=== PATIENT | male | born 1960 | race Caucasian/White ===

== ENCOUNTER → 2023-03-07 | Outpatient (CLI) | payer OTHER ==
[2023-03-08 09:55] LABS: Albumin, Blood 3.9 g/dL (3.4-5.0); Albumin/Globulin Ratio 1.1 (0.8-1.8); Bilirubin, Total 0.4 mg/dL (0.1-1.0); Bun/Creatinine Ratio 27.1 (12.0-20.0); Creatinine, Blood 1.77 mg/dL (0.60-1.20); Globulin, Blood 3.5 g/dL (2.2-4.0); Potassium, Blood 4.9 mmol/L (3.5-5.5); Total Protein, Blood 7.4 g/dL (6.4-8.2)
== END ==
LOC: LAB 15:28 → LAB SHORT 15:28
PROVIDERS: Family Medicine Adult Medicine
DX: N17.9 Acute kidney failure, unspecified (principal)
CPT/HCPCS: 80053

== ENCOUNTER → 2023-03-24 | Outpatient (CLI) | payer OTHER ==
[2023-03-24 14:09] LABS: Microalbumin, Urine Quant. 14.6 mg/L (0.000-20.000); Protein, Urine Quantitative 17.5 mg/dL (0.0-11.9)
== END ==
LOC: LAB SHORT 11:28 → LAB 11:28
PROVIDERS: Internal Medicine Nephrology
DX: N18.30 Chronic kidney disease, stage 3 unspecified (principal); D50.9 Iron deficiency anemia, unspecified; R76.9 Abnormal immunological finding in serum, unspecified; R94.5 Abnormal results of liver function studies; R94.6 Abnormal results of thyroid function studies; G60.9 Hereditary and idiopathic neuropathy, unspecified; D52.8 Other folate deficiency anemias
CPT/HCPCS: 81050; 82043; 82570; 84156

== ENCOUNTER → 2024-07-05 | Outpatient (CLI) | payer OTHER | END | disposition home or self-care (01) | LOC: LAB 10:57 → LAB SHORT 10:57 | DX: A04.8 Other specified bacterial intestinal infections (principal) | CPT/HCPCS: 87338 ==

== ENCOUNTER 2024-08-08 16:09 | Inpatient (IN) | payer OTHER ==
[~2024-08-08] VITALS: Ht 188 cm; Wt 66.4 kg
[2024-08-08 17:15] LABS: BASOPHILS ABSOLUTE AUTO 0.04 K/mm3 (0.00-0.23); BASOPHILS PERCENT AUTO 0 % (0-2); EOSINOPHILS ABSOLUTE AUTO 0.01 K/mm3 (0.00-0.68); EOSINOPHILS PERCENT AUTO 0 % (0-6); Hematocrit 36.7 % (37.0-53.0); Hemoglobin 11.9 g/dL (13.5-17.5); IMMATURE GRAN ABSOLUTE AUTO 0.02 K/mm3 (0.00-0.10); IMMATURE GRAN PERCENT AUTO 0 % (0-1); LYMPHOCYTES ABSOLUTE AUTO 1.25 K/mm3 (0.84-5.20); LYMPHOCYTES PERCENT AUTO 13 % (21-46); MONOCYTES ABSOLUTE AUTO 1.33 K/mm3 (0.16-1.47); MONOCYTES PERCENT AUTO 14 % (4-13); Mean Corpuscular HGB 30.5 pg (26.0-34.0); Mean Corpuscular HGB Conc 32.4 g/dL (31.5-36.5); Mean Corpuscular Volume 94 fL (80-100); Mean Platelet Volume 11.3 fL (9.1-12.4); NEUTROPHILS ABSOLUTE AUTO 6.99 K/mm3 (1.96-9.15); NEUTROPHILS PERCENT AUTO 73 % (41-73); Platelet Count 374 K/mm3 (150-400); RDW Coefficient Variation 13.9 % (11.7-14.2); RDW Standard Deviation 48.4 fL (35.1-46.3); White Blood Cell Count 9.64 K/mm3 (4.00-11.30)
[2024-08-08 17:50] LABS: Albumin, Blood 3.7 g/dL (3.4-5.0); Albumin/Globulin Ratio 0.8 (0.8-1.8); Bilirubin, Total 0.7 mg/dL (0.1-1.0); Bun/Creatinine Ratio 16.7 (12.0-20.0); Calcium, Blood 16.3 mg/dL (8.5-10.1); Creatinine, Blood 1.74 mg/dL (0.60-1.20); Globulin, Blood 4.8 g/dL (2.2-4.0); Potassium, Blood 4.7 mmol/L (3.5-5.5); Total Protein, Blood 8.5 g/dL (6.4-8.2)
[2024-08-08] MEDS ORDERED: NS 1,000 ML IV SCH ×2 (20:20→21:20)
[2024-08-08 20:48] LABS: Magnesium, Blood 2.4 mg/dL (1.6-2.4); Phosphorus, Blood 2.7 mg/dL (2.5-4.9)
[2024-08-08] MEDS ORDERED: Ondansetron HCl 2 MG / ML 2ML Vial IV PRN (21:20)
[2024-08-08] MEDS ORDERED: FLU VACC TS2024-25(6MOS UP)/PF 45 MCG/0.5 ML SYRINGE IM SCH (21:20)
[2024-08-08] MEDS ORDERED: TraMADol HCl 50 MG Tab PO PRN (21:25)
[2024-08-08] MEDS ORDERED: NS 1,000 ML IV ONE (21:25)
[2024-08-08 21:46] LABS: Source, Urine Clean Catch
[2024-08-08 22:03] LABS: Appearance, Urine Clear (Clear); Bilirubin, Urine Neg (Neg); Blood, Urine 1+ (Neg); Glucose Qualitative, Urine 1+ (Neg); Ketones, Urine Neg (Neg); Leukocyte Esterase, Urine Neg (Neg); Nitrite, Urine Neg (Neg); Protein, Urine 3+ (Neg); Urobilinogen, Urine NORM (Normal)
[2024-08-08 22:04] LABS: Color, Urine Pale Yellow (P-Yellow)
[2024-08-08 22:10] LABS: Bacteria Rare /hpf; Squamous Epithelial Cells Rare /hpf (Few); White Blood Cells, Urine 0-2 /hpf (0-5)
[2024-08-08 22:14] VITALS: BP 167/90
[2024-08-08] MEDS ORDERED: SODBIC650 PO (22:33)
[2024-08-08 22:34] LABS: Influenza A, PCR NEGATIVE (NEGATIVE); Influenza B, PCR NEGATIVE (NEGATIVE); Resp Syncytial Virus, PCR NEGATIVE (NEGATIVE); SARS-Cov-2 (COVID-19) PCR, MMC NEGATIVE (NEGATIVE)
[2024-08-08] MEDS ORDERED: Calcitonin Salmon 200 IU/ML 2ML Vial SC SCH (23:00)
[2024-08-09] VITALS (9 sets, daily range): BP systolic 150–191; BP diastolic 68–90
[2024-08-09] MEDS ORDERED: HydrALAZINE HCl 20 MG / ML 1ML Vial IV PRN (01:10)
[2024-08-09] MEDS ORDERED: AmLODIPine Besylate 5 MG Tab PO SCH (01:15)
[2024-08-09 04:01] LABS: Hematocrit 32.4 % (37.0-53.0); Hemoglobin 10.5 g/dL (13.5-17.5); Mean Corpuscular HGB 31.3 pg (26.0-34.0); Mean Corpuscular HGB Conc 32.4 g/dL (31.5-36.5); Mean Corpuscular Volume 96 fL (80-100); Mean Platelet Volume 11.3 fL (9.1-12.4); Platelet Count 340 K/mm3 (150-400); RDW Coefficient Variation 14.1 % (11.7-14.2); RDW Standard Deviation 49.3 fL (35.1-46.3); Red Blood Cell Count 3.36 M/mm3 (4.30-5.90); White Blood Cell Count 9.08 K/mm3 (4.00-11.30)
[2024-08-09 04:45] LABS: Albumin, Blood 3.2 g/dL (3.4-5.0); Albumin/Globulin Ratio 0.8 (0.8-1.8); Bilirubin, Total 0.5 mg/dL (0.1-1.0); Bun/Creatinine Ratio 17.3 (12.0-20.0); Creatinine, Blood 1.73 mg/dL (0.60-1.20); Globulin, Blood 4.1 g/dL (2.2-4.0); Potassium, Blood 4.4 mmol/L (3.5-5.5); Total Protein, Blood 7.3 g/dL (6.4-8.2)
[2024-08-09 04:46] LABS: Calcium, Blood 14.3 mg/dL (8.5-10.1)
[2024-08-09] MEDS ORDERED: CREON DR 12,001 EACH PO (08:06)
[2024-08-09] MEDS ORDERED: CELE200 PO (08:08)
[2024-08-09] MEDS ORDERED: Amylase/Lipase/Protease DR Cap 12,000 PO SCH (08:30)
[2024-08-09] MEDS ORDERED: Heparin Sodium 5000 Units/ML 1ML MDV SC SCH (09:00)
[2024-08-09] MEDS ORDERED: Sodium Bicarbonate 650 MG Tab PO SCH (09:00)
[2024-08-09] MEDS ORDERED: Celecoxib 100 MG Cap PO PRN (11:20)
[2024-08-09] MEDS ORDERED: Labetalol HCL 100 MG TAB PO SCH (12:00)
[2024-08-09 15:26] LABS: Bun/Creatinine Ratio 18.9 (12.0-20.0); Calcium, Blood 14.9 mg/dL (8.5-10.1); Creatinine, Blood 1.64 mg/dL (0.60-1.20); Potassium, Blood 4.5 mmol/L (3.5-5.5)
[2024-08-09] MEDS ORDERED: ZOLEDRONIC ACID IV ONE (16:00)
[2024-08-09] MEDS ORDERED: NS IV ONE (16:00)
[2024-08-09 19:50] LABS: Calcium, Blood 15.4 mg/dL (8.5-10.1); Creatinine, Blood 1.7 mg/dL (0.60-1.20); Potassium, Blood 4.2 mmol/L (3.5-5.5)
[2024-08-10] MEDS ORDERED: Calcitonin Salmon 200 IU/ML 2ML Vial SC SCH
[2024-08-10 04:22] VITALS: BP 158/84
[2024-08-10 04:57] LABS: Hematocrit 32.4 % (37.0-53.0); Hemoglobin 10.1 g/dL (13.5-17.5); Mean Corpuscular HGB 30.1 pg (26.0-34.0); Mean Corpuscular HGB Conc 31.2 g/dL (31.5-36.5); Mean Corpuscular Volume 97 fL (80-100); Mean Platelet Volume 11.8 fL (9.1-12.4); Platelet Count 325 K/mm3 (150-400); RDW Coefficient Variation 14.4 % (11.7-14.2); RDW Standard Deviation 50.7 fL (35.1-46.3); Red Blood Cell Count 3.35 M/mm3 (4.30-5.90); White Blood Cell Count 9.36 K/mm3 (4.00-11.30)
[2024-08-10 06:14] LABS: Albumin/Globulin Ratio 0.8 (0.8-1.8); Bilirubin, Total 0.3 mg/dL (0.1-1.0); Bun/Creatinine Ratio 18.8 (12.0-20.0); Calcium, Blood 14.2 mg/dL (8.5-10.1); Creatinine, Blood 1.76 mg/dL (0.60-1.20); Potassium, Blood 4.2 mmol/L (3.5-5.5)
[2024-08-10 07:13] VITALS: BP 188/71
[2024-08-10] MEDS ORDERED: Polyethylene Glycol 3350 17 gm PO PRN (09:20)
[2024-08-10] MEDS ORDERED: Bisacodyl 10 MG Supp PR PRN (09:25)
[2024-08-10] MEDS ORDERED: NS 1,000 ML IV SCH (09:30)
[2024-08-10] MEDS ORDERED: Furosemide 10 MG/ML 4ML Vial IV SCH (10:00)
[2024-08-10 15:35] VITALS: BP 146/80
[2024-08-10 17:46] LABS: Anion Gap 11 mmol/L (3-11); Blood Urea Nitrogen 33 mg/dL (8-24); Bun/Creatinine Ratio 19.4 (12.0-20.0); CO2, Blood 23 mmol/L (21-32); Chloride, Blood 107 mmol/L (98-108); Glomerular Filtration Rate 44 (60-); Glucose, Blood 243 mg/dL (70-99); Phosphorus, Blood 3.7 mg/dL (2.5-4.9); Potassium, Blood 4.2 mmol/L (3.5-5.5); Sodium, Blood 137 mmol/L (136-145)
[2024-08-10 19:42] VITALS: BP 158/84
[2024-08-10] MEDS ORDERED: Docusate Sodium 100 MG Cap PO SCH (21:00)
[2024-08-10] MEDS ORDERED: Sennosides 8.6 MG Tab PO SCH (21:00)
[2024-08-11 03:26] VITALS: BP 154/88
[2024-08-11 05:38] LABS: Albumin, Blood 2.9 g/dL (3.4-5.0); Albumin/Globulin Ratio 0.8 (0.8-1.8); Bilirubin, Total 0.3 mg/dL (0.1-1.0); Bun/Creatinine Ratio 18.8 (12.0-20.0); Calcium, Blood 13.1 mg/dL (8.5-10.1); Creatinine, Blood 1.7 mg/dL (0.60-1.20); Globulin, Blood 3.7 g/dL (2.2-4.0); Potassium, Blood 4.5 mmol/L (3.5-5.5); Total Protein, Blood 6.6 g/dL (6.4-8.2)
[2024-08-11 07:44] VITALS: BP 136/79
[2024-08-11 15:32] VITALS: BP 140/80
[2024-08-11 19:37] VITALS: BP 138/70
[2024-08-11] MEDS ORDERED: CREON DR 12,001 EACH PO (23:07)
[2024-08-11] MEDS ORDERED: PHOSPHO-TRIN 2250 MG PO (23:10)
[2024-08-12 04:44] VITALS: BP 143/66
[2024-08-12 06:10] LABS: Albumin, Blood 2.8 g/dL (3.4-5.0); Albumin/Globulin Ratio 0.8 (0.8-1.8); Bilirubin, Total 0.3 mg/dL (0.1-1.0); Bun/Creatinine Ratio 17.8 (12.0-20.0); Calcium, Blood 12.2 mg/dL (8.5-10.1); Creatinine, Blood 1.74 mg/dL (0.60-1.20); Globulin, Blood 3.6 g/dL (2.2-4.0); Potassium, Blood 4.3 mmol/L (3.5-5.5); Total Protein, Blood 6.4 g/dL (6.4-8.2)
[2024-08-12 07:46] VITALS: BP 144/82
[2024-08-12] MEDS ORDERED: LABE100 PO (13:06)
[2024-08-12] MEDS ORDERED: AMLO10 PO (13:06)
== END 2024-08-12 13:23 | disposition home or self-care (01) | DRG 641 ==
LOC: ER 16:09 → PCU 22:26 → MEDS 08-09 14:57
PROVIDERS: Internal Medicine; Nurse Practitioner Acute Care; Physician Assistant; ADMIT Student in an Organized Health Care Education/Training Program
DX: E83.52 Hypercalcemia (principal); N17.9 Acute kidney failure, unspecified; C7B.8 Other secondary neuroendocrine tumors; N18.30 Chronic kidney disease, stage 3 unspecified; I12.9 Hypertensive chronic kidney disease with stage 1 through stage 4 chronic kidney disease, or unspecified chronic kidney disease; E11.22 Type 2 diabetes mellitus with diabetic chronic kidney disease; K86.89 Other specified diseases of pancreas; K59.00 Constipation, unspecified; D63.1 Anemia in chronic kidney disease; Z96.41 Presence of insulin pump (external) (internal); Z79.4 Long term (current) use of insulin
CPT/HCPCS: 0241U; 36415; 71045; 80048; 80053; 80069; 81001; 82306; 82330; 82947; 83690; 83735; 83970; 84100; 85025; 85027; 93005; 93010; 93306; 94762; 96360; 99285-25; A9270; J0360; J0630; J1644; J1940; J2405; J3489; J7030

== ENCOUNTER → 2024-08-30 | Outpatient (CLI) | payer OTHER ==
[~2024-08-30] MED LIST: AMLO10 PO; CELE200 PO; CREON DR 12,001 EACH PO; LABE100 PO; PHOSPHO-TRIN 2250 MG PO; SODBIC650 PO
[2024-08-30 14:51] LABS: Albumin, Blood 3.2 g/dL (3.4-5.0); Albumin/Globulin Ratio 0.9 (0.8-1.8); Bilirubin, Total 0.3 mg/dL (0.1-1.0); Bun/Creatinine Ratio 24.3 (12.0-20.0); Calcium, Blood 9.6 mg/dL (8.5-10.1); Creatinine, Blood 1.4 mg/dL (0.60-1.20); Globulin, Blood 3.4 g/dL (2.2-4.0); Phosphorus, Blood 2.8 mg/dL (2.5-4.9); Potassium, Blood 4.8 mmol/L (3.5-5.5); Total Protein, Blood 6.6 g/dL (6.4-8.2)
== END | disposition home or self-care (01) ==
LOC: LAB SHORT 13:24 → LAB 13:24
PROVIDERS: Internal Medicine Hematology & Oncology
DX: E83.52 Hypercalcemia (principal)
CPT/HCPCS: 80053; 84100

== ENCOUNTER 2024-11-16 08:50 | Inpatient (IN) | payer OTHER ==
[~2024-11-16] VITALS: Ht 188 cm; Wt 69.0 kg
[2024-11-16] MEDS ORDERED: Metoclopramide HCl 5MG / ML 2ML Vial IV ONE (09:20)
[2024-11-16] MEDS ORDERED: NS 1,000 ML IV SCH ×3 (09:20→13:00)
[2024-11-16 10:20] LABS: BASOPHILS ABSOLUTE AUTO 0.03 K/mm3 (0.00-0.23); BASOPHILS PERCENT AUTO 0 % (0-2); EOSINOPHILS ABSOLUTE AUTO 0.02 K/mm3 (0.00-0.68); EOSINOPHILS PERCENT AUTO 0 % (0-6); Hematocrit 35.3 % (37.0-53.0); Hemoglobin 11.7 g/dL (13.5-17.5); IMMATURE GRAN ABSOLUTE AUTO 0.04 K/mm3 (0.00-0.10); IMMATURE GRAN PERCENT AUTO 0 % (0-1); LYMPHOCYTES ABSOLUTE AUTO 0.69 K/mm3 (0.84-5.20); LYMPHOCYTES PERCENT AUTO 8 % (21-46); MONOCYTES ABSOLUTE AUTO 1.06 K/mm3 (0.16-1.47); MONOCYTES PERCENT AUTO 12 % (4-13); Mean Corpuscular HGB 32.5 pg (26.0-34.0); Mean Corpuscular HGB Conc 33.1 g/dL (31.5-36.5); Mean Corpuscular Volume 98 fL (80-100); Mean Platelet Volume 10.9 fL (9.1-12.4); NEUTROPHILS ABSOLUTE AUTO 7.11 K/mm3 (1.96-9.15); NEUTROPHILS PERCENT AUTO 80 % (41-73); Platelet Count 371 K/mm3 (150-400); RDW Coefficient Variation 15.9 % (11.7-14.2); RDW Standard Deviation 56.1 fL (35.1-46.3); White Blood Cell Count 8.95 K/mm3 (4.00-11.30)
[2024-11-16 10:39] LABS: Magnesium, Blood 2.2 mg/dL (1.6-2.4)
[2024-11-16 11:04] LABS: Influenza A, PCR NEGATIVE (NEGATIVE); Influenza B, PCR NEGATIVE (NEGATIVE); Resp Syncytial Virus, PCR NEGATIVE (NEGATIVE); SARS-Cov-2 (COVID-19) PCR, MMC NEGATIVE (NEGATIVE)
[2024-11-16 11:11] LABS: Albumin, Blood 3.5 g/dL (3.4-5.0); Albumin/Globulin Ratio 0.8 (0.8-1.8); Bilirubin, Total 0.6 mg/dL (0.1-1.0); Bun/Creatinine Ratio 19.3 (12.0-20.0); Calcium, Blood 14.7 mg/dL (8.5-10.1); Creatinine, Blood 1.71 mg/dL (0.60-1.20); Globulin, Blood 4.5 g/dL (2.2-4.0); Phosphorus, Blood 3.8 mg/dL (2.5-4.9); Potassium, Blood 4.6 mmol/L (3.5-5.5)
[2024-11-16] MEDS ORDERED: Calcitonin Salmon 200 IU/ML 2ML Vial IM ONE (11:55)
[2024-11-16] MEDS ORDERED: Zoledronic Acid 4 MG in NS 100 ML IV ONE (12:00)
[2024-11-16] MEDS ORDERED: Ondansetron HCl 2 MG / ML 2ML Vial IV PRN (12:40)
[2024-11-16] MEDS ORDERED: OLANZapine ODT 5 MG Tab PO ONE (13:45)
[2024-11-16] MEDS ORDERED: Ibuprofen 400 MG Tab PO ONE (13:45)
[2024-11-16] MEDS ORDERED: Amylase/Lipase/Protease DR Cap 12,000 PO ONE (14:00)
[2024-11-16 14:21] VITALS: BP 150/82
--- NOTE | 2024-11-16 17:31 | NUR ---
ADMISSION/SHIFT ASSESSMENT: PATIENT ARRIVES TO ROOM AT 1411 VIA W/C FROM ER FOR DX'S OF HYPERCALCEMIA. PATIENT ORIENTATED TO ROOM AND CALL SYSTEM. ADMISSION, MEDRIC AND SKIN ASSESSMENT c 2 RN'S VERIFIED COMPLETED. PATIENT A/OX4, CALM, PLEASANT AND COOPERATIVE c CARE. PATIENT HAS INSULIN PUMP. PER DR. HERNANDEZ PATIENT CAN RESUME INSULIN PUMP, MEDICATE HIMSELF AND NO ACCU CHECKED NEEDED. PATIENT DENIES CP/PRESSURE, SOB, N/V AND DIZZINESS. PATIENT ON REGULAR DIET FOR DINNER, CONTINENT OF BLADDER, USES URINAL IN BED. VITAL SIGNS REVIEWED. CALL LIGHT IN REACH.
--- NOTE | 2024-11-16 19:03 | NUR ---
NOTE: PATIENT REQUESTING TO RESTART HIS HOME MEDS. NOTIFIED DR. HERNANDEZ. PER DR. EHRNANDEZ TO CALL [facility]. NOTIFIED SIMONE martinez PATIENT REQUEST. PER SIMONE HE WILL RESTART HOME MEDS.
[2024-11-16] MEDS ORDERED: Amylase/Lipase/Protease DR Cap 12,000 PO PRN ×2 (19:05→19:19)
[2024-11-16 19:51] VITALS: BP 160/75
[2024-11-16] MEDS ORDERED: TraZODone HCl 50 MG Tab PO SCH (21:00)
[2024-11-16] MEDS ORDERED: Labetalol HCL 100 MG TAB PO SCH (21:00)
[2024-11-16] MEDS ORDERED: Calcitonin Salmon 200 IU/ML 2ML Vial IM SCH (22:00)
[2024-11-17 03:10] VITALS: BP 158/80
[2024-11-17 05:45] LABS: Bun/Creatinine Ratio 18.4 (12.0-20.0); Calcium, Blood 14.1 mg/dL (8.5-10.1); Creatinine, Blood 1.63 mg/dL (0.60-1.20); Potassium, Blood 4.1 mmol/L (3.5-5.5)
--- NOTE | 2024-11-17 06:21 | NUR ---
SHIFT SUMMARY NOC PT A/O X 4. PLEASANT AND COOPERATIVE WITH CARE. VSS. PT DM1 BUT HAS INSULIN PUMP AND DEXCOM IN PLACE IN [facility] THAT DR HERNANDEZ TOLD PT AND DAY RN THAT PT IS ALLOWED TO MANAGE BLOOD GLUCOSE INDEPDENTLY. PT HAD C/O OF REQUIRING SLEEP AID AND REPORTED THAT THEY HAD RECEIVED TRAZADONE 5O MG WHEN PREVIOUSLY IN HOSPITAL. HOSPITALIST NOTIFIED AND ONE TIME DOSE ORDERED. PT RECEIVING INFUSION OF NS @ 150 ML/HR. PT URINE OUTPUT IS GOOD AND USING URINAL. PT RECEIVED 1/3 DOSES OF CALCITONIN. SERUM CA 14.10. PTCURRENTLY RESTING WITH BED IN LOWEST POSITION, AND CALL LIGHT WITHIN REACH.
[2024-11-17 08:11] VITALS: BP 145/79
[2024-11-17] MEDS ORDERED: Amylase/Lipase/Protease DR Cap 12,000 PO SCH (08:30)
[2024-11-17 08:56] VITALS: BP 154/79
[2024-11-17] MEDS ORDERED: AmLODIPine Besylate 5 MG Tab PO SCH (09:00)
[2024-11-17] MEDS ORDERED: Sodium Bicarbonate 650 MG Tab PO SCH (09:00)
[2024-11-17] MEDS ORDERED: Enoxaparin 40 MG/0.4 ML SYR SC SCH (09:00)
--- NOTE | 2024-11-17 09:30 | NUR ---
AM NOTE: PATIENT SBP 154/79 c 56 HR TAKEN RADIALLY. PATIENT HAS SCHEDULED PO LABETALOL 100 MG AND NORVASC [address] MARY martinez THIS CONCERNED AND REQUEST FOR PARAMETERS. RECEIVED ORDER TO HOLD LABETALOL DOSE AND GIVE THE NORVASC.
[2024-11-17 15:55] VITALS: BP 159/76
--- NOTE | 2024-11-17 17:32 | NUR ---
SHIFT SUMMARY: PATIENT A/OX4, PLEASANT AND COOPERATIVE c CARE. PATIENT DENIES CP/PRESSURE, SOB, N/V AND DIZZINESS. PATIENT RECEIVED SCHEDULED MEDS PER EMAR. PATIENT HAS GOOD APPETITE, CONTINENT OF BLADDER, AMBULATES TO BATHROOM INDEPENDENTLY T/O SHIFT. VITALS SIGNS REVIEWED. PATIENT HAS HAD NO COMPLAINTS OR NO NEW CONCERNED THIS SHIFT. CALL LIGHT IN REACH
[2024-11-17 20:01] VITALS: BP 156/74
[2024-11-18 04:15] VITALS: BP 152/80
--- NOTE | 2024-11-18 05:17 | NUR ---
SHIFT SUMMARY NOC PT A/O X 4. PLEASANT AND COOPERATIVE WITH CARE. VSS. NO ACUTE EVENTS TO REPORT. PT HAS NOT HAD BM DURING SHIFT. PT RECEIVED CALCITONIN INJECTION PER EMAR AND AWAITING AM LABS. PT MANAGING DM1 WITH DEXCOM AND INSULIN PUMP INDEPENDENTLY. PT CURRENTLY RESTING WITH BED IN LOWEST POSITION, AND CALL LIGHT WITHIN REACH.
[2024-11-18 05:27] LABS: Bun/Creatinine Ratio 16.7 (12.0-20.0); Calcium, Blood 12.5 mg/dL (8.5-10.1); Creatinine, Blood 1.62 mg/dL (0.60-1.20); Potassium, Blood 4.2 mmol/L (3.5-5.5)
[2024-11-18 07:15] VITALS: BP 137/76
[2024-11-18] MEDS ORDERED: Calcitonin Salmon 200 IU/ML 2ML Vial IM SCH (09:51)
[2024-11-18] MEDS ORDERED: NS 1,000 ML IV SCH (10:00)
[2024-11-18 15:23] VITALS: BP 147/75
--- NOTE | 2024-11-18 17:29 | NUR ---
SHIFT SUMMARY: PT A&O X4. PLEASANT AND COOPERATIVE. INDEPENDENT IN ROOM. CALCIUM LOWERED WITH AM LABS. IM CALITONIN GIVEN IN LEFT THIGH. NS INFUSING @ 150/HR. PT HAVING GOOD APPETITE. PT HOPEFUL TO D/C TOMORROW OR MONDAY. CALL LIGHT IN REACH. BED IN LOWEST POSITION.
[2024-11-18 19:37] VITALS: BP 144/76
--- NOTE | 2024-11-19 03:16 | NUR ---
SHIFT SUMMARY PATIENT HAS APPEARED TO SLEEP COMFORTABLY THROUGHOUT THE SHIFT. HE HAS NOT HAD ANY COMPLAINTS. NORMAL SALINE IS INFUSING WITHOUT COMPLICATIONS. PATIENT IS ORIENTED X4. HE HAS HIS CALL LIGHT WITHIN REACH. SAFETY PRECAUTIONS ARE BEING MAINTAINED.
[2024-11-19 04:56] VITALS: BP 142/68
[2024-11-19 06:19] LABS: Bun/Creatinine Ratio 20.5 (12.0-20.0); Calcium, Blood 11.1 mg/dL (8.5-10.1); Creatinine, Blood 1.56 mg/dL (0.60-1.20); Potassium, Blood 4.9 mmol/L (3.5-5.5)
[2024-11-19 07:36] VITALS: BP 136/86
[2024-11-19] MEDS ORDERED: LOSA50 PO (14:00)
[2024-11-19] MEDS ORDERED: Actonel150 MG PO (14:01)
--- NOTE | 2024-11-19 15:55 | NUR ---
DISCHARGE PT AOX4, COOPERATIVE, ABLE TO MAKE NEEDS KNOWN. IND IN ROOM. NO PAIN COMPLAINT. PT HAS BEEN PT ALL SHIFT. IV DC'D BY THIS RN APPROX 1400, AND PT WALKED OUT OF THE [facility]OSPITAL OF OWN WILL, REFUSED WHEELCHAIR TRANSPORTATION. THIS RN WENT OVER DC PAPERWORK WITH PT.
== END 2024-11-19 14:46 | disposition home or self-care (01) | DRG 641 ==
LOC: ER 08:50 → MEDS 12:35 → ERHOLD 12:35 → MEDS 14:03
PROVIDERS: Student in an Organized Health Care Education/Training Program; ADMIT Internal Medicine
DX: E83.52 Hypercalcemia (principal); C7B.02 Secondary carcinoid tumors of liver; E87.1 Hypo-osmolality and hyponatremia; N17.9 Acute kidney failure, unspecified; N18.4 Chronic kidney disease, stage 4 (severe); D63.1 Anemia in chronic kidney disease; E11.22 Type 2 diabetes mellitus with diabetic chronic kidney disease; E11.69 Type 2 diabetes mellitus with other specified complication; K86.89 Other specified diseases of pancreas; I12.9 Hypertensive chronic kidney disease with stage 1 through stage 4 chronic kidney disease, or unspecified chronic kidney disease; Z91.013 Allergy to seafood; K76.89 Other specified diseases of liver; K59.00 Constipation, unspecified; Z90.411 Acquired partial absence of pancreas
CPT/HCPCS: 0241U; 36415; 74177; 80048; 80053; 82330; 82947; 83735; 84100; 85025; 93005; 93010; 96372; 96374; 96375; 99285-25; A9270; J0630; J1650; J2765; J3489; J7030; Q9967

== ENCOUNTER 2025-04-23 19:00 | Emergency (ER) | payer MEDICARE, OTHER ==
[~2025-04-23] VITALS: Ht 182.9 cm; Wt 88.5 kg
[~2025-04-23 19:00] MED LIST changes: +Actonel150 MG PO; +LOSA50 PO
[2025-04-23 19:58] LABS: BASOPHILS ABSOLUTE AUTO 0.03 K/mm3 (0.00-0.23); BASOPHILS PERCENT AUTO 0 % (0-2); EOSINOPHILS ABSOLUTE AUTO 0.12 K/mm3 (0.00-0.68); EOSINOPHILS PERCENT AUTO 1 % (0-6); Hematocrit 25.3 % (37.0-53.0); Hemoglobin 8.3 g/dL (13.5-17.5); IMMATURE GRAN ABSOLUTE AUTO 0.04 K/mm3 (0.00-0.10); IMMATURE GRAN PERCENT AUTO 0 % (0-1); LYMPHOCYTES ABSOLUTE AUTO 1.21 K/mm3 (0.84-5.20); LYMPHOCYTES PERCENT AUTO 12 % (21-46); MONOCYTES ABSOLUTE AUTO 1.45 K/mm3 (0.16-1.47); MONOCYTES PERCENT AUTO 15 % (4-13); Mean Corpuscular HGB Conc 32.8 g/dL (31.5-36.5); Mean Corpuscular Volume 107 fL (80-100); NEUTROPHILS ABSOLUTE AUTO 6.98 K/mm3 (1.96-9.15); NEUTROPHILS PERCENT AUTO 71 % (41-73); NRBC ABSOLUTE 0.00 K/mm3 (0.00-0.02); NRBC Auto 0.0 /100 WBC (0.0-0.2); Platelet Count 221 K/mm3 (150-400); RDW Coefficient Variation 15.6 % (11.7-14.2); RDW Standard Deviation 60.3 fL (35.1-46.3)
[2025-04-23 20:19] LABS: Alanine Aminotransfer (ALT/SGP 21.0 U/L (12-78); Albumin, Blood 3.4 g/dL (3.4-5.0); Albumin/Globulin Ratio 0.9 (0.8-1.8); Anion Gap 12.0 mmol/L (3-11); Aspartate Aminotrans (AST/SGOT 17.0 U/L (12-37); Bilirubin, Total 0.3 mg/dL (0.1-1.0); Blood Urea Nitrogen 44.0 mg/dL (8-24); CO2, Blood 19.0 mmol/L (21-32); Calcium, Blood 10.5 mg/dL (8.5-10.1); Chloride, Blood 110.0 mmol/L (98-108); Creatinine, Blood 2.15 mg/dL (0.60-1.20); Globulin, Blood 3.7 g/dL (2.2-4.0); Glucose, Blood 73.0 mg/dL (70-99); Potassium, Blood 5.4 mmol/L (3.5-5.5); Sodium, Blood 136.0 mmol/L (136-145); Total Protein, Blood 7.1 g/dL (6.4-8.2)
[2025-04-24] VITALS: BP 156/88
== END 2025-04-24 00:10 | disposition home or self-care (01) ==
LOC: ER 19:00
PROVIDERS: Physician Assistant
DX: K92.1 Melena (principal); I12.9 Hypertensive chronic kidney disease with stage 1 through stage 4 chronic kidney disease, or unspecified chronic kidney disease; E11.22 Type 2 diabetes mellitus with diabetic chronic kidney disease; N18.30 Chronic kidney disease, stage 3 unspecified; Z79.899 Other long term (current) drug therapy; Z91.013 Allergy to seafood
CPT/HCPCS: 80053; 82272; 85025; 86850; 86900; 86901; 99284